=== PATIENT | male | born 1955 | race African-American/Black ===

== ENCOUNTER 2018-12-16 10:06 | Emergency (ER) | payer OTHER, MEDICARE ==
[~2018-12-16] VITALS: Ht 185.4 cm; Wt 90.0 kg
[~2018-12-16 10:06] MED LIST: ATEN-42 PO; COLC0.6T2 PO; FURO-151 PO; WARF10TA21 PO; WARF5TAB76 PO
[2018-12-16] MEDS ORDERED: ONDANSETRON HCL 4MG/2ML INJ IV STA (11:21)
[2018-12-16] MEDS ORDERED: SODIUM CHLORIDE 0.9% 1,000 ML IV ONE (11:21)
[2018-12-16] MEDS ORDERED: MORPHINE SULFATE 4 MG/ML CPJ (NOT FOR IM USE) IV STA (11:21)
[2018-12-16 11:48] LABS: BASOPHILS % 0.6 % (0.0-2.0); HEMATOCRIT. 41.2 % (42.0-52.0); HEMOGLOBIN. 13.6 g/dL (14.0-18.0); LYMPHOCYTES % 7.6 % (20.0-50.0); MEAN CORPUSCULAR HEMOGLOBIN 28.4 pg (28.0-32.0); MEAN CORPUSCULAR VOLUME 86.3 fL (80.0-94.0); MEAN PLATELET VOLUME 9.7 fl (7.4-10.4); NEUTROPHILS % 78.8 % (40.0-76.0); PLATELET 198 x1000/uL (130-400); RED BLOOD CELL COUNT 4.77 mill/uL (4.7-6.1); RED CELL DISTRIBUTION WIDTH 14.6 % (11.6-14.6)
[2018-12-16 11:54] LABS: CHLORIDE 90 mEq/L (98-107)
[2018-12-16 12:08] LABS: INR 1.2
[2018-12-16] MEDS ORDERED: ASPIRIN 81MG TABLET PO ONE (13:30)
[2018-12-16] MEDS ORDERED: ALBUTEROL (0.083%) 2.5MG/3ML NEB HHN ONE (14:45)
[2018-12-16] MEDS ORDERED: MORPHINE SULFATE 4 MG/ML CPJ (NOT FOR IM USE) IV ONE (17:45)
[2018-12-16] MEDS ORDERED: ONDANSETRON HCL 4MG/2ML INJ IV ONE (17:45)
[2018-12-16 18:05] VITALS: BP 120/80
== END 2018-12-16 18:30 | disposition short-term general hospital (02) ==
LOC: ER 10:06 → EDBEDREQ 13:22 → EDBEDREQSVC 13:22 → ER 18:30 → CANBEDREQ 19:53
DX: S32.020A Wedge compression fracture of second lumbar vertebra, initial encounter for closed fracture (principal); S22.089A Unspecified fracture of T11-T12 vertebra, initial encounter for closed fracture; R06.2 Wheezing; Y93.9 Activity, unspecified; W19.XXXA Unspecified fall, initial encounter; Y92.9 Unspecified place or not applicable; I48.91 Unspecified atrial fibrillation; E11.9 Type 2 diabetes mellitus without complications; I11.0 Hypertensive heart disease with heart failure; E87.1 Hypo-osmolality and hyponatremia; I50.9 Heart failure, unspecified; M48.061 Spinal stenosis, lumbar region without neurogenic claudication; M51.26 Other intervertebral disc displacement, lumbar region; R25.1 Tremor, unspecified
CPT/HCPCS: 36415; 70450; 71045; 72131; 80053; 83605; 83880; 84484; 85025; 85610; 93005; 94640; 96374; 96375; 96376; 99285; J2270; J2405; J7030; J7611; Z7610